=== PATIENT | male | born 1970 | race Caucasian/White ===

== ENCOUNTER 2019-02-08 08:56 | Inpatient (IN) | payer OTHER ==
[2019-02-08 09:46] VITALS: BMI 29.2
--- NOTE | 2019-02-08 10:18 | HP ---
CIWA Score Nausea/Vomitin Muscle Tremors: 2 Anxiety: 3 Agitation: 2 Paroxysmal Sweats: 1-Minimal Palms Moist Orientation: 0-Oriented Tacttile Disturbances: 1-Very Mild Itch/Numbness Auditory Disturbances: 1-Very Mild Visual Disturbances: 0-None Headache: 2-Mild CIWA-Ar Total Score: 14 - Admission Criteria OASAS Guidelines: Admission for Medically Managed Detox: Requires at least one of the followin. CIWA greater than 12 2. Seizures within the past 24 hours 3. Delirium tremens within the past 24 hours 4. Hallucinations within the past 24 hours 5. Acute intervention needed for co occurring medical disorder 6. Acute intervention needed for co occurring psychiatric disorder 7. Severe withdrawal that cannot be handled at a lower level of care (continued vomiting, continued diarrhea, abnormal vital signs) requiring intravenous medication and/or fluids 8. Admission ROS S - HPI Chief Complaint: i need help to stop driking alcohol Allergies/Adverse Reactions: Allergies Allergy/AdvReac Type Severity Reaction Status Date / Time No Known Allergies Allergy Verified 02/08/19 09:27 History of Present Illness: this 49 years old male with alcohol dependence seeking detox,withdrawal symptom, multiple admissions to detox,never been in detox 07/15 in [facility] seizure 3 weeks ago history of hypertension,asthma nicotine dependence longest sobriety 2 years history left inguinal hernia repair in 1985,,1993 eczema dislocation of right shoulder in 1989 plan for out patient program after detox - Ebola screening Have you traveled outside of the country in the last 21 days: No Have you had contact with anyone from an Ebola affected area: No Do you have a fever: No - Review of Systems Constitutional: Loss of Appetite, Malaise, Night Sweats, Changes in sleep, Weakness EENT: reports: Tearing, Nose Congestion Respiratory: reports: No Symptoms reported, Other (asthma history) Cardiac: reports: No Symptoms Reported GI: reports: Diarrhea, Nausea, Vomiting, Abdominal cramping : reports: No Symptoms Reported Musculoskeletal: reports: Back Pain, Muscle Pain Integumentary: reports: Dryness Neuro: reports: Headache, Tremors Endocrine: reports: No Symptoms Reported Hematology: reports: No Symptoms Reported Psychiatric: reports: No Sypmtoms Reported, Judgement Intact, Mood/Affect Appropiate, Orientated x3, other Other Systems: Reviewed and Negative Patient History - Patient Medical History Hx Anemia: No Hx Asthma: Yes (on albuterol inhaler) Hx Chronic Obstructive Pulmonary Disease (COPD): No Hx Cancer: No Hx Cardiac Disorders: No Hx Congestive Heart Failure: No Hx Hypertension: Yes (on med) Hx Hypercholesterolemia: No Hx Pacemaker: No HX Cerebrovascular Accident: No Hx Seizures: Yes (last 3 weeks ago) Hx Dementia: No Hx Diabetes: No Hx Gastrointestinal Disorders: No Hx Liver Disease: No Hx Genitourinary Disorders: No Hx Sexually Transmitted Disorders: No Hx Renal Disease (ESRD): No Hx Thyroid Disease: No Hx Human Immunodeficiency Virus (HIV): No (last 10/17) Hx Hepatitis C: No Hx Suicide Attempt: No Hx Bipolar Disorder: No Hx Schizophrenia: No Other Medical History: no suicidal,no homicidal,dislocation of right shoulder - Patient Surgical History Hx Abdominal Surgery: Yes (left inguinal hernia repair in 1984 and 1993) - PPD History Previous Implant?: Yes Documented Results: Negative w/o proof Implanted On Prior [facility] Admission?: No PPD to be Administered?: Yes - Smoking Cessation Smoking history: Current every day smoker Have you smoked in the past 12 months: Yes Aproximately how many cigarettes per day: 4 Hx Chewing Tobacco Use: No Initiated information on smoking cessation: Yes 'Breaking Loose' booklet given: 02/08/19 - Substance & Tx. History Hx Alcohol Use: Yes Hx Substance Use: No Substance Use Type: Alcohol Hx Substance Use Treatment: Yes (last [facility] 07/15) - Substances abused Alcohol Substance route: Oral Frequency: Daily Amount used: 4 16oz beer and 1/2 pint of rum Age of first use: 10 Date of last use: 02/07/19 Family Disease History - Family Disease History Family Disease History: Other: Father (alcohol,sober), Mother (alcohol,) Admission Physical Exam [facility] - Vital Signs Vital Signs: Vital Signs - 24 hr 02/08/19 02/08/19 09:26 10:00 Temperature 97.2 F L 97.2 F L Pulse Rate 90 90 Respiratory 20 20 Rate Blood Pressure 135/92 135/92 - Physical General Appearance: Yes: Moderate Distress, Tremorous, Irritable, Sweating, Anxious HEENTM: Yes: Normal ENT Inspection, MIGUELITO, Pharynx Normal Respiratory: Yes: Within Normal Limits, Lungs Clear, Normal Breath Sounds Neck: Yes: Within Normal Limits, Supple, Trachea in good position Breast: Yes: Within Normal Limits Cardiology: Yes: Within Normal Limits, Regular Rhythm, Regular Rate, S1, S2 Abdominal: Yes: Within Normal Limits, Normal Bowel Sounds, Non Tender, Flat, Soft Genitourinary: Yes: Within Normal Limits Back: Yes: Muscle Spasm Musculoskeletal: Yes: Back pain, Muscle Pain Extremities: Yes: Within Normal Limits, Normal Range of Motion, Tremors Neurological: Yes: metal sprayer II-XII NML intact, Fully Oriented, Alert, Motor Strength 5/5 Integumentary: Yes: Dry Lymphatic: Yes: Within Normal Limits - Diagnostic (1) Alcohol dependence with uncomplicated withdrawal Current Visit: Yes Status: Acute (2) Alcohol dependence with uncomplicated intoxication Current Visit: Yes Status: Acute (3) Alcohol related seizure Current Visit: Yes Status: Acute (4) Syncope Current Visit: Yes Status: Acute (5) Essential hypertension Current Visit: Yes Status: Acute (6) History of left inguinal hernia repair Current Visit: Yes Status: Acute (7) Asthma Current Visit: Yes Status: Acute (8) Depression Current Visit: Yes Status: Acute (9) Dehydration Current Visit: Yes Status: Acute Cleared for Admission S - Detox or Rehab [facility] Level of Care: Medically Managed Detox Regimen/Protocol: Librium Breathalyzer - Breathalyzer Breathalyzer: 0.153 Urine Drug Screen - Test Device Lot number: [id number] Expiration date: 10/29/20 - Control Is test valid?: Yes - Results Drug screen NEGATIVE: Yes Inpatient Rehab Admission - Rehab Decision to Admit Inpatient rehab admission?: No
[2019-02-08] MEDS ORDERED: hydrOXYzine PAMOATE 25 MG CAPSULE (FP) PO PRN (10:31)
[2019-02-08] MEDS ORDERED: MAGNESIUM HYDROX 2400MG/30ML ORAL SUSPENSION 30 ML CUP PO PRN (10:31)
[2019-02-08] MEDS ORDERED: chlordiazePOXIDE HCL 25 MG CAPSULE PO PRN (10:31)
[2019-02-08] MEDS ORDERED: MELATONIN 5 MG TABLETS PO PRN (10:31)
[2019-02-08] MEDS ORDERED: BISMUTH SUBSALICYLATE 524 MG/30 ML UD PO PRN (10:31)
[2019-02-08] MEDS ORDERED: METHOCARBAMOL 500 MG TABLET PO PRN (10:31)
[2019-02-08] MEDS ORDERED: MAG HYDROX/AL HYDROX/SIMETH 30 ML UNIT-DOSE CUP PO PRN (10:31)
[2019-02-08] MEDS ORDERED: MENTHOL/PHENOL 1 EACH UD MM PRN (10:31)
[2019-02-08] MEDS ORDERED: ACETAMINOPHEN 325 MG TABLET (FP) PO PRN ×2 (10:31)
[2019-02-08] MEDS ORDERED: MAGNESIUM CITRATE 300 ML BOTTLE PO PRN (10:31)
[2019-02-08] MEDS ORDERED: ALBUTEROL SO4 8 GM HFA INHALER IH PRN (10:36)
[2019-02-08 12:08] LABS: HEMATOCRIT 41.3 % (35.4-49); HEMOGLOBIN 13.7 GM/dL (11.7-16.9); MCH 30.6 pg (25.7-33.7); MCHC 33.1 g/dl (32.0-35.9); MEAN CELL VOLUME 92.6 fl (80-96); MEAN PLT VOLUME 7.7 fl (7.5-11.1); PLATELET COUNT 248 K/MM3 (134-434); RBC 4.46 M/mm3 (4.00-5.60); RDW 15.4 % (11.9-15.9); WHITE BLOOD COUNT 11.9 K/mm3 (4.0-10.0)
[2019-02-08 12:18] LABS: ALBUMIN 3.7 g/dl (3.4-5.0); BILIRUBIN,TOTAL 1.4 mg/dL (0.2-1); CALCIUM 8.9 mg/dL (8.5-10.1); CREATININE 0.9 mg/dL (0.55-1.3); POTASSIUM 4.1 mmol/L (3.5-5.1); TOT PROT 8.4 g/dl (6.4-8.2)
--- NOTE | 2019-02-08 15:10 | EKG ---
Test Reason : Blood Pressure : / mmHG Vent. Rate : 080 BPM Atrial Rate : 080 BPM P-R Int : 158 ms QRS Dur : 116 ms QT Int : 388 ms P-R-T Axes : 056 -28 047 degrees QTc Int : 447 ms NORMAL SINUS RHYTHM NORMAL ECG NO PREVIOUS ECGS AVAILABLE Confirmed by ZEYNEP DORMAN MD ([id number]) on 02/08/2019 3:10:04 PM Referred By: Confirmed By:ZEYNEP DORMAN MD
[2019-02-08] MEDS: FLUOCINONIDE 0.05% CREAM (60 GM TUBE) TP SCH ×2 (15:27→23:01)
[2019-02-08] MEDS: chlordiazePOXIDE HCL 25 MG CAPSULE PO SCH ×2 (17:37→22:10)
[2019-02-08] MEDS: IBUPROFEN 400 MG TABLET (FP) PO PRN (20:10)
[2019-02-08] MEDS: THIAMINE HCL 100 MG TABLET (FP) PO SCH (22:11)
[2019-02-08] MEDS: levETIRAcetam 500 MG TABLET (FP) PO SCH (22:11)
[2019-02-09] MEDS: chlordiazePOXIDE HCL 25 MG CAPSULE PO SCH ×4 (06:02→22:23)
[2019-02-09] MEDS: IBUPROFEN 400 MG TABLET (FP) PO PRN (06:04)
[2019-02-09] MEDS: PRENATAL VITAMINS W/ FOLIC ACID TABLET (FP) PO SCH (10:14)
[2019-02-09] MEDS: levETIRAcetam 500 MG TABLET (FP) PO SCH ×2 (10:15→22:23)
[2019-02-09] MEDS: amLODIPine BESYLATE 5 MG TABLET (FP) PO SCH (10:15)
[2019-02-09] MEDS: LORATADINE 10 MG TABLET PO SCH (10:15)
[2019-02-09] MEDS: FLUOCINONIDE 0.05% CREAM (60 GM TUBE) TP SCH (10:17)
--- NOTE | 2019-02-09 11:02 | PN ---
S CIWA - CIWA Score Nausea/Vomitin Muscle Tremors: 2 Anxiety: 2 Agitation: 2 Paroxysmal Sweats: 1-Minimal Palms Moist Orientation: 0-Oriented Tacttile Disturbances: 1-Very Mild Itch/Numbness Auditory Disturbances: 1-Very Mild Visual Disturbances: 0-None Headache: 2-Mild CIWA-Ar Total Score: 13 [facility] Progress Note (SOAP) Subjective: alert,irritable,anxious,interrupted sleep,tremor,history of eczema Objective: 02/09/19 10:58 Vital Signs Temperature 97.3 F L 02/09/19 09:30 Pulse Rate 95 H 02/09/19 09:30 Respiratory Rate 18 02/09/19 09:30 Blood Pressure 156/96 02/09/19 09:30 O2 Sat by Pulse Oximetry (%) 02/09/19 10:58 Laboratory Last Values WBC 11.9 K/mm3 (4.0-10.0) H 02/08/19 10:00 RBC 4.46 M/mm3 (4.00-5.60) 02/08/19 10:00 Hgb 13.7 GM/dL (11.7-16.9) 02/08/19 10:00 Hct 41.3 % (35.4-49) 02/08/19 10:00 MCV 92.6 fl (80-96) 02/08/19 10:00 MCH 30.6 pg (25.7-33.7) 02/08/19 10:00 MCHC 33.1 g/dl (32.0-35.9) 02/08/19 10:00 RDW 15.4 % (11.9-15.9) 02/08/19 10:00 Plt Count 248 K/MM3 (134-434) 02/08/19 10:00 MPV 7.7 fl (7.5-11.1) 02/08/19 10:00 Sodium 138 mmol/L (136-145) 02/08/19 10:00 Potassium 4.1 mmol/L (3.5-5.1) 02/08/19 10:00 Chloride 104 mmol/L (98-107) 02/08/19 10:00 Carbon Dioxide 28 mmol/L (21-32) 02/08/19 10:00 Anion Gap 5 MMOL/L (8-16) L 02/08/19 10:00 BUN 6 mg/dL (7-18) L 02/08/19 10:00 Creatinine 0.9 mg/dL (0.55-1.3) 02/08/19 10:00 Est GFR (CKD-EPI)AfAm 115.02 02/08/19 10:00 Est GFR (CKD-EPI)NonAf 99.24 02/08/19 10:00 Random Glucose 100 mg/dL (74-106) 02/08/19 10:00 Calcium 8.9 mg/dL (8.5-10.1) 02/08/19 10:00 Total Bilirubin 1.4 mg/dL (0.2-1) H 02/08/19 10:00 AST 27 U/L (15-37) 02/08/19 10:00 ALT 30 U/L (13-61) 02/08/19 10:00 Alkaline Phosphatase 106 U/L (45-117) 02/08/19 10:00 Total Protein 8.4 g/dl (6.4-8.2) H 02/08/19 10:00 Albumin 3.7 g/dl (3.4-5.0) 02/08/19 10:00 Urine Color Yellow 02/08/19 18:35 Urine Appearance Clear 02/08/19 18:35 Urine pH Cancelled 02/08/19 14:00 Urine pH (Auto) 5.5 (5.0-8.0) 02/08/19 18:35 Ur Specific [place] Cancelled 02/08/19 14:00 Specific [place] (Auto) <= 1.005 (1.010-1.035) L 02/08/19 18:35 Urine Protein Cancelled 02/08/19 14:00 Urine Protein (Auto) 2+ (NEGATIVE) 02/08/19 18:35 Urine Glucose (UA) Cancelled 02/08/19 14:00 Glucose (UA)(Auto) Negative (NEGATIVE) 02/08/19 18:35 Urine Ketones Cancelled 02/08/19 14:00 Urine Ketones (Auto) Negative (NEGATIVE) 02/08/19 18:35 Urine Blood Cancelled 02/08/19 14:00 Urine Blood (Auto) Trace-lysed (NEGATIVE) 02/08/19 18:35 Urine Nitrite Cancelled 02/08/19 14:00 Urine Nitrite (Auto) Negative (NEGATIVE) 02/08/19 18:35 Urine Bilirubin Negative (<2.0 mg/dL) 02/08/19 18:35 Urine Urobilinogen Cancelled 02/08/19 14:00 Urine Urobilinogen (Auto) 0.2 mg/dL (0.2-1.0) 02/08/19 18:35 Ur Leukocyte Esterase Cancelled 02/08/19 14:00 Leukocyte Esterase (Auto) Negative (NEGATIVE) 02/08/19 18:35 Urine WBC (Auto) Cancelled 02/08/19 14:00 Urine RBC (Auto) Cancelled 02/08/19 14:00 Urine Casts (Auto) Cancelled 02/08/19 14:00 U Pathogenic Cast Auto Cancelled 02/08/19 14:00 U Epithel Cells (Auto) Cancelled 02/08/19 14:00 U Sm Round Cell (Auto) Cancelled 02/08/19 14:00 Urine Crystals (Auto) Cancelled 02/08/19 14:00 Urine Bacteria (Auto) Cancelled 02/08/19 14:00 Urine RBC 0-2 /hpf (0-3) 02/08/19 18:35 Urine WBC 0-2 /hpf (3-5) 02/08/19 18:35 Urine Yeast (Auto) Cancelled 02/08/19 14:00 RPR Titer Nonreactive (NONREACTIVE) 02/08/19 10:00 HIV 1&2 Antibody Screen Negative 02/08/19 10:00 HIV P24 Antigen Negative 02/08/19 10:00 Assessment: 02/09/19 10:59 withdrawal symptom Plan: continue detox,patient would like to have lidex ointment instead of cream,for eczema face bactroban to leg old opening of skin
--- NOTE | 2019-02-09 11:30 | PN ---
S Progress Note Note: wbc 11,900,afebrile,possible dehydration,encourage oral fluid,repeat cbc in am
[2019-02-09] MEDS: MUPIROCIN 2% TOPICAL OINTMENT 22 GM TUBE TP SCH ×2 (11:44→22:23)
[2019-02-09] MEDS: FLUOCINONIDE 0.05% TOP OINT (60 GM TUBE) TP SCH ×2 (11:46→22:24)
[2019-02-09] MEDS: THIAMINE HCL 100 MG TABLET (FP) PO SCH (22:23)
[2019-02-10] MEDS: chlordiazePOXIDE HCL 25 MG CAPSULE PO SCH ×2 (06:12→10:15)
[2019-02-10 10:00] LABS: HEMOGLOBIN 13.9 GM/dL (11.7-16.9); MCH 30.9 pg (25.7-33.7); MCHC 33.1 g/dl (32.0-35.9); MEAN CELL VOLUME 93.4 fl (80-96); MEAN PLT VOLUME 7.7 fl (7.5-11.1); PLATELET COUNT 270 K/MM3 (134-434); RDW 14.8 % (11.9-15.9); WHITE BLOOD COUNT 7.5 K/mm3 (4.0-10.0)
[2019-02-10] MEDS: levETIRAcetam 500 MG TABLET (FP) PO SCH ×2 (10:11→22:33)
[2019-02-10] MEDS: PRENATAL VITAMINS W/ FOLIC ACID TABLET (FP) PO SCH (10:11)
[2019-02-10] MEDS: FLUOCINONIDE 0.05% TOP OINT (60 GM TUBE) TP SCH ×2 (10:12→22:35)
[2019-02-10] MEDS: amLODIPine BESYLATE 5 MG TABLET (FP) PO SCH (10:12)
[2019-02-10] MEDS: LORATADINE 10 MG TABLET PO SCH (10:12)
[2019-02-10] MEDS: MUPIROCIN 2% TOPICAL OINTMENT 22 GM TUBE TP SCH ×2 (10:13→22:35)
[2019-02-10] MEDS ORDERED: amLODIPine BESYLATE 5 MG TABLET (FP) PO ONE (15:26)
--- NOTE | 2019-02-10 15:30 | PN ---
[facility] CIWA - CIWA Score Nausea/Vomitin-No Nausea/No Vomiting Muscle Tremors: 2 Anxiety: 4-Mod. Anxious/Guarded Agitation: 2 Paroxysmal Sweats: 2 Orientation: 0-Oriented Tacttile Disturbances: 2-Mild Itch/Numbness/Burn Auditory Disturbances: 0-None Visual Disturbances: 2-Mild Sensitivity Headache: 0-None Present CIWA-Ar Total Score: 14 S Progress Note (SOAP) Subjective: Anxious, Agitated, Sweating, Tremors (Mild). Objective: PATIENT A & O X 3, OBSERVED AMBULATING ON UNIT UNASSISTED. IN NO ACUTE DISTRESS. 02/10/19 15:25 Vital Signs Temperature 97.7 F 02/10/19 13:19 Pulse Rate 91 H 02/10/19 13:19 Respiratory Rate 18 02/10/19 13:19 Blood Pressure 151/93 02/10/19 13:19 O2 Sat by Pulse Oximetry (%) Laboratory Tests 02/08/19 02/08/19 02/08/19 10:00 10:00 10:00 WBC 11.9 H RBC 4.46 Hgb 13.7 Hct 41.3 MCV 92.6 MCH 30.6 MCHC 33.1 RDW 15.4 Plt Count 248 MPV 7.7 Sodium 138 Potassium 4.1 Chloride 104 Carbon Dioxide 28 Anion Gap 5 L BUN 6 L Creatinine 0.9 Est GFR (CKD-EPI)AfAm 115.02 Est GFR (CKD-EPI)NonAf 99.24 Random Glucose 100 Calcium 8.9 Total Bilirubin 1.4 H AST 27 ALT 30 Alkaline Phosphatase 106 Total Protein 8.4 H Albumin 3.7 Urine Color Urine Appearance Urine pH Urine pH (Auto) Ur Specific [place] Specific [place] (Auto) Urine Protein Urine Protein (Auto) Urine Glucose (UA) Glucose (UA)(Auto) Urine Ketones Urine Ketones (Auto) Urine Blood Urine Blood (Auto) Urine Nitrite Urine Nitrite (Auto) Urine Bilirubin Urine Urobilinogen Urine Urobilinogen (Auto) Ur Leukocyte Esterase Leukocyte Esterase (Auto) Urine WBC (Auto) Urine RBC (Auto) Urine Casts (Auto) U Pathogenic Cast Auto U Epithel Cells (Auto) U Sm Round Cell (Auto) Urine Crystals (Auto) Urine Bacteria (Auto) Urine RBC Urine WBC Urine Yeast (Auto) RPR Titer HIV 1&2 Antibody Screen Negative HIV P24 Antigen Negative 02/08/19 02/08/19 02/08/19 10:00 14:00 18:35 WBC RBC Hgb Hct MCV MCH MCHC RDW Plt Count MPV Sodium Potassium Chloride Carbon Dioxide Anion Gap BUN Creatinine Est GFR (CKD-EPI)AfAm Est GFR (CKD-EPI)NonAf Random Glucose Calcium Total Bilirubin AST ALT Alkaline Phosphatase Total Protein Albumin Urine Color Cancelled Yellow Urine Appearance Cancelled Clear Urine pH Cancelled Urine pH (Auto) 5.5 Ur Specific [place] Cancelled Specific [place] (Auto) <= 1.005 L Urine Protein Cancelled Urine Protein (Auto) 2+ Urine Glucose (UA) Cancelled Glucose (UA)(Auto) Negative Urine Ketones Cancelled Urine Ketones (Auto) Negative Urine Blood Cancelled Urine Blood (Auto) Trace-lysed Urine Nitrite Cancelled Urine Nitrite (Auto) Negative Urine Bilirubin Cancelled Negative Urine Urobilinogen Cancelled Urine Urobilinogen (Auto) 0.2 Ur Leukocyte Esterase Cancelled Leukocyte Esterase (Auto) Negative Urine WBC (Auto) Cancelled Urine RBC (Auto) Cancelled Urine Casts (Auto) Cancelled U Pathogenic Cast Auto Cancelled U Epithel Cells (Auto) Cancelled U Sm Round Cell (Auto) Cancelled Urine Crystals (Auto) Cancelled Urine Bacteria (Auto) Cancelled Urine RBC 0-2 Urine WBC 0-2 Urine Yeast (Auto) Cancelled RPR Titer Nonreactive HIV 1&2 Antibody Screen HIV P24 Antigen 02/10/19 07:00 WBC 7.5 RBC 4.50 Hgb 13.9 Hct 42.0 MCV 93.4 MCH 30.9 MCHC 33.1 RDW 14.8 Plt Count 270 MPV 7.7 Sodium Potassium Chloride Carbon Dioxide Anion Gap BUN Creatinine Est GFR (CKD-EPI)AfAm Est GFR (CKD-EPI)NonAf Random Glucose Calcium Total Bilirubin AST ALT Alkaline Phosphatase Total Protein Albumin Urine Color Urine Appearance Urine pH Urine pH (Auto) Ur Specific [place] Specific [place] (Auto) Urine Protein Urine Protein (Auto) Urine Glucose (UA) Glucose (UA)(Auto) Urine Ketones Urine Ketones (Auto) Urine Blood Urine Blood (Auto) Urine Nitrite Urine Nitrite (Auto) Urine Bilirubin Urine Urobilinogen Urine Urobilinogen (Auto) Ur Leukocyte Esterase Leukocyte Esterase (Auto) Urine WBC (Auto) Urine RBC (Auto) Urine Casts (Auto) U Pathogenic Cast Auto U Epithel Cells (Auto) U Sm Round Cell (Auto) Urine Crystals (Auto) Urine Bacteria (Auto) Urine RBC Urine WBC Urine Yeast (Auto) RPR Titer HIV 1&2 Antibody Screen HIV P24 Antigen LABS NOTED. RESULTS OF REPEAT CBC NOTED. WBC NOW NOTED TO BE WITHIN NORMAL RANGE. PATIENT AFEBRILE. 02/10/19 15:27 Assessment: 02/10/19 15:27 WITHDRAWAL SYMPTOMS. HYPERTENSION. HYPERBILIRUBINEMIA. Plan: CONTINUE DETOX. INCREASE DAILY DOSE OF AMLODIPINE TO 10 MG PO DAILY FOR ELEVATED BP DESPITE PREVIOUS TREATMENT. PATIENT REPORTS THAT CURRENT LIBRIUM REGIMEN IS CAUSING HIM TO FEEL EXCESSIVELY LETHARGIC. WITH PATIENT'S VERBAL CONSENT, CURRENT LIBRIUM DETOX MEDICATION REGIMEN MODIFIED DOWN TO LOWER DOSE.
[2019-02-10] MEDS ORDERED: chlordiazePOXIDE HCL 10 MG CAPSULE PO PRN (17:00)
[2019-02-10] MEDS ORDERED: chlordiazePOXIDE HCL 10 MG CAPSULE PO SCH (17:00)
[2019-02-10] MEDS: chlordiazePOXIDE 5 MG CAPSULE PO SCH ×2 (17:09→22:35)
[2019-02-10] MEDS: THIAMINE HCL 100 MG TABLET (FP) PO SCH (22:33)
[2019-02-11 06:59] VITALS: BP 132/91; PULSE 115; TEMP 98.1
--- NOTE | 2019-02-11 08:20 | PN ---
S Progress Note Note: pt refuses to continue with detox and wants to be with his boyfriend; pt signed out AMA. pt declined all referral.
--- NOTE | 2019-02-11 08:47 | DS ---
[facility] Detox Discharge Summary Admission Date: 02/08/19 Discharge Date: 02/11/19 - History Present History: Alcohol Dependence - Physical Exam Results Vital Signs: Vital Signs Temperature 98.1 F 02/11/19 06:58 Pulse Rate 115 H 02/11/19 06:58 Respiratory Rate 20 02/11/19 06:58 Blood Pressure 132/91 02/11/19 06:58 O2 Sat by Pulse Oximetry (%) - Treatment Hospital Course: Detox Protocol Followed, Detoxed Safely, Responded well, Discharged Condition Good, Rehab Referral Accepted - Medication Discharge Medications: Ambulatory Orders Acetaminophen [Mapap] 500 mg PO TID 02/08/19 Amlodipine Besylate 5 mg PO DAILY 02/08/19 Levetiracetam 500 mg PO BID 02/08/19 Loratadine 10 mg PO DAILY 02/08/19 Mupirocin Ointment [Bactroban 2% Ointment -] 1 applic TP BID 02/08/19 Vitamin B Complex 1 each PO DAILY 02/08/19 - Diagnosis (1) Alcohol dependence with uncomplicated withdrawal Current Visit: Yes Status: Acute (2) Alcohol related seizure Current Visit: Yes Status: Acute (3) Asthma Current Visit: Yes Status: Acute (4) Depression Current Visit: Yes Status: Acute (5) Essential hypertension Current Visit: Yes Status: Chronic - AMA Did Patient Leave Against Medical Advice: Yes (going home/declined aftercare)
[2019-02-11] MEDS ORDERED: chlordiazePOXIDE 5 MG CAPSULE PO SCH (10:00)
[2019-02-11] MEDS ORDERED: amLODIPine BESYLATE 10 MG TABLET (FP) PO SCH (10:00)
[2019-02-11] MEDS ORDERED: chlordiazePOXIDE HCL 10 MG CAPSULE PO SCH (17:00)
== END 2019-02-11 08:27 | disposition left against medical advice (07) | DRG 770 ==
LOC: YASAS 08:56 → Y6N 10:27
PROVIDERS: ADMIT Surgery; ATTEND Surgery
PROC: HZ2ZZZZ Detoxification Services for Substance Abuse Treatment (ICD-10-PCS; principal; 2019-02-08)
DX: F10.230 Alcohol dependence with withdrawal, uncomplicated (principal); F10.220 Alcohol dependence with intoxication, uncomplicated; F17.210 Nicotine dependence, cigarettes, uncomplicated; F32.9 Major depressive disorder, single episode, unspecified; I10 Essential (primary) hypertension; J45.909 Unspecified asthma, uncomplicated; E80.6 Other disorders of bilirubin metabolism; E86.0 Dehydration; G40.909 Epilepsy, unspecified, not intractable, without status epilepticus
CPT/HCPCS: 36415; 80053; 81003; 81015; 85027; 86593; 87389; 93005; 93010